=== PATIENT | male | born 1975 | race Caucasian/White ===

== ENCOUNTER 2017-03-08 20:33 | Emergency (ER) | END 2017-03-09 02:22 | disposition home or self-care (01) | DX: J20.9 Acute bronchitis, unspecified (principal); B34.9 Viral infection, unspecified; B19.20 Unspecified viral hepatitis C without hepatic coma; F17.200 Nicotine dependence, unspecified, uncomplicated ==

== ENCOUNTER 2017-08-08 03:29 | Emergency (ER) | payer SELFPAY ==
[~2017-08-08 03:29] MED LIST: GABA-534 PO; TRAM50TA2 PO
--- NOTE | 2017-08-08 04:14 | NUR ---
PT DECIDED NOT TO BE SEEN.LWBT
== END 2017-08-08 04:07 | disposition left against medical advice (07) ==
LOC: ER 03:32
DX: Z53.21 Procedure and treatment not carried out due to patient leaving prior to being seen by health care provider (principal)

== ENCOUNTER 2018-08-24 02:06 | Emergency (ER) | payer BC, MEDICAID ==
[~2018-08-24] VITALS: Ht 172.7 cm; Wt 81.6 kg
--- NOTE | 2018-08-24 02:25 | NUR ---
Pt. BIB [facility] for SOB and 09/12 CP to upper R chest since 08/16, states he was seen at [facility] for PE on the , currently taking eloquis and suboxone, last IV heroin use this AM, pt. is A/Ox4, speaks w/ some exertion, is disheveled in appearance,
[2018-08-24] MEDS ORDERED: MISCELLANEOUS MED XX ONE (02:30)
--- NOTE | 2018-08-24 02:38 | NUR ---
Pt. up to use restroom, ambulates w/ steady gait,
[2018-08-24] MEDS ORDERED: RIVAROXABAN 10 MG TABLET ONE (03:25)
--- NOTE | 2018-08-24 03:30 | NUR ---
Unable to start IV after multiple attempts by multiple RNs - MD aware
--- NOTE | 2018-08-24 03:50 | NUR ---
Phleb. tech. at bedside for blood draw
--- NOTE | 2018-08-24 03:56 | NUR ---
Blood specimens collected and sent to lab,
[2018-08-24 04:06] LABS: BASOPHILS # (AUTO) 0.1 K/uL (0.0-8.0); BASOPHILS % (AUTO) 0.6 % (0.0-2.0); EOSINOPHILS # (AUTO) 0.1 K/uL (0.0-0.7); EOSINOPHILS % (AUTO) 1.2 % (0.0-7.0); HEMOGLOBIN 13.8 g/dL (12.5-16.3); LYMPHOCYTES # (AUTO) 2.3 K/uL (20.0-40.0); LYMPHOCYTES % (AUTO) 24.9 % (20.5-51.5); MEAN CORPUSCULAR HGB CONC 33 g/dL (32.5-36.3); MEAN CORPUSCULAR VOLUME 85.5 fL (73.0-96.2); MONOCYTES # (AUTO) 0.4 K/uL (2.0-10.0); MONOCYTES % (AUTO) 4.9 % (0.0-11.0); NEUTROPHILS # (AUTO) 6.2 K/uL (1.8-8.9); NEUTROPHILS % (AUTO) 68.4 % (38.5-71.5); PLATELET COUNT (AUTO) 311 K/uL (152-348); RED BLOOD CELL COUNT(AUTO) 4.92 MIL/uL (4.06-5.63); WHITE BLOOD COUNT (AUTO) 9.1 K/uL (3.6-10.2)
[2018-08-24 04:28] LABS: BILIRUBIN,DIRECT 0.1 mg/dL (0.0-0.2); BILIRUBIN,TOTAL 0.4 mg/dL (0.2-1.0); CREATININE 1.2 mg/dL (0.6-1.3); POTASSIUM 3.7 mmol/L (3.5-5.1); TOTAL PROTEIN, SERUM 8.2 g/dL (6.4-8.2)
--- NOTE | 2018-08-24 04:30 | NUR ---
Called for bed, pt. to go to tele [phone],
[2018-08-24] MEDS ORDERED: APIX5TAB PO (04:50)
[2018-08-24] MEDS ORDERED: BUPR1FIL3 SL (04:50)
--- NOTE | 2018-08-24 04:54 | NUR ---
Called Event Lighting Specialist for PICC placement - [phone] estimate for PICC placement
--- NOTE | 2018-08-24 05:07 | NUR ---
Security at bedside for contraband check
--- NOTE | 2018-08-24 05:20 | NUR ---
Contraband taken and given to [employer] Machine Operator by security
--- NOTE | 2018-08-24 05:28 | NUR ---
Called [facility] for panel call, Dr. Tucker to be paged,
--- NOTE | 2018-08-24 06:10 | NUR ---
Called lab for 2nd trop. draw
--- NOTE | 2018-08-24 06:15 | NUR ---
Called Assistant Hvac Mechanic for PICC ETA - no response yet, pt. to undergo PICC placement in ER for CT angiogram to r/o PE
--- NOTE | 2018-08-24 06:32 | NUR ---
Phleb. tech. at bedside for 2nd trop. draw
[2018-08-24] MEDS ORDERED: SWABABLE VALVE TRANSFER SET EA MC ONE (06:40)
[2018-08-24] MEDS ORDERED: IV NORMAL SALINE 0 ML IV ONE (06:40)
[2018-08-24] MEDS ORDERED: IOHEXOL 350 100 ML INFUS..BTL ONE (06:40)
--- NOTE | 2018-08-24 06:48 | NUR ---
Dr. Lemus in w/ pt.,
--- NOTE | 2018-08-24 07:33 | NUR ---
DC, RX AND FOLLOW UP INSTRUCTIONS GIVEN AND EXPLAINED TO PATIENT WHO STATES HE UNDERSTANDS ALL INSTRUCTIONS. DENIES SOB AT THIS TIME. HE IS AMBULATORY WITH STEADY GAIT.
--- NOTE | 2018-08-24 07:35 | NUR ---
PATIENT RECEIVED HIS BELONGINGS AND PRESCRIPTION BOTTLE.
[2018-08-24 07:39] VITALS: BP 122/81
--- NOTE | 2018-08-24 07:42 | NUR ---
patient left ER with a woman and a dog and states he does not need help with fci or transportation. He was given a meal during the night. He has long jeans on and a clean shirt. He was wearing shoes and socks.
[2018-08-24] MEDS ORDERED: RIVAROXABAN 10 MG TABLET PO SCH (18:00)
== END 2018-08-24 07:44 | disposition home or self-care (01) ==
LOC: ER 02:08
DX: R07.89 Other chest pain (principal); R06.02 Shortness of breath; F15.10 Other stimulant abuse, uncomplicated; F11.10 Opioid abuse, uncomplicated; F17.290 Nicotine dependence, other tobacco product, uncomplicated; Z86.711 Personal history of pulmonary embolism; Z59.0 Homelessness; Z79.899 Other long term (current) drug therapy
CPT/HCPCS: 36415; 70030-TC; 71045; 85025; 93005; A4663; J7050; Q9967

== ENCOUNTER 2020-11-03 01:23 | Emergency (ER) | payer BC, MEDICAID ==
[~2020-11-03] VITALS: Ht 170.2 cm; Wt 86.2 kg
[~2020-11-03 01:23] MED LIST changes: +APIX5TAB PO; +BUPR1FIL3 SL; -GABA-534 PO; -TRAM50TA2 PO
[2020-11-03] MEDS ORDERED: SULFAMETH/TRIMETH 800/160 MG TABLET PO ONE (03:00)
[2020-11-03] MEDS ORDERED: CEFTRIAXONE 1 G VIAL IM ONE (03:00)
--- NOTE | 2020-11-03 03:00 | NUR ---
Pt c/o right leg abscess x 3-4 days.
[2020-11-03] MEDS ORDERED: CEPH500T PO (03:05)
[2020-11-03] MEDS ORDERED: SULF1TAB48 PO (03:05)
[2020-11-03] MEDS ORDERED: LIDOCAINE HCL 1% 20 ML VIAL ONE (03:29)
[2020-11-03] MEDS ORDERED: CEFTRIAXONE 1 G VIAL ONE (03:29)
[2020-11-03] MEDS ORDERED: SULFAMETH/TRIMETH 800/160 MG TABLET ONE (03:29)
[2020-11-03 03:32] VITALS: BP 115/80
--- NOTE | 2020-11-03 03:32 | NUR ---
Patient discharged to home in stable condition. Written and verbal after care instructions given. Patient verbalizes understanding of instructions. Stressed follow up or return to ER for worsening s/s. All belongings taken. Walks w/ steady gait. No signs of distress.
== END 2020-11-03 03:33 | disposition home or self-care (01) ==
LOC: ER 01:25
DX: L03.115 Cellulitis of right lower limb (principal); J45.909 Unspecified asthma, uncomplicated; Z86.19 Personal history of other infectious and parasitic diseases; F17.210 Nicotine dependence, cigarettes, uncomplicated
CPT/HCPCS: 96372; 99283; J0696; J3490; A4663